=== PATIENT | female | born 1965 | race Caucasian/White ===

== ENCOUNTER 2017-06-06 07:45 | Inpatient (IN) | payer BC ==
--- NOTE | 2017-07-16 13:50 | HP ---
PREOPERATIVE HISTORY AND PHYSICAL: DATE OF ADMISSION: This patient is scheduled for AA admission by Dr. Jose, on 07/25/17. DATE OF PREOPERATIVE HISTORY AND PHYSICAL EXAMINATION: 07/16/17. ATTENDING SURGEON: Josef Jose MD * (dictated by Regina Lewis NP). CHIEF COMPLAINT: Gastrojejunal stricture. HISTORY OF PRESENT ILLNESS: The patient is a 52-year-old female status post laparoscopic Jovany-En-Y gastric [place] [address] Jose. 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 She describes reflux like symptoms that are not improved with proton pump inhibitors. She underwent EGD in May 2017 and dilation of a 6-mm gastrojejunal anastomosis. She also underwent an upper GI study, which showed a hiatal hernia. Surgery was scheduled in May 2017, but she had an abnormal EKG at preadmission testing and therefore was referred to Dr. Dee. She underwent cardiology workup and was cleared to proceed with surgery now. Please see the attached cardiology consultation note for details. Dr. Jose has recommended laparoscopic revision of the gastrojejunal anastomosis and has discussed the nature of the surgical procedure, the rationale for the procedure, the relevant risks and benefits and today, I discussed the typical hospitalization and postoperative care and recovery. The patient has had a chance to ask questions and stated that she understands the information and is satisfied with the answers given to her questions. She will sign surgical consent on the day of surgery. PAST MEDICAL HISTORY: Is significant for obesity, gastroesophageal reflux disease, nutritional anemia. PAST SURGICAL HISTORY: Laparoscopic Jovany-En-Y gastric bypass in 2011, laparoscopic cholecystectomy, abdominoplasty, tonsillectomy, appendectomy, breast reduction, and hernia repair. MEDICATIONS: Ativan 0.5 mg p.r.n. anxiety. ALLERGIES: CODEINE causes migraine headaches; she can tolerate hydrocodone. FAMILY HISTORY: No known anesthesia complications, bleeding tendencies, or clotting disorders. 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 She has never been a smoker. She denies the use of alcohol or other substances. REVIEW OF SYSTEMS: Constitutional: No fevers or chills, excessive fatigue or weight loss; yesterday she reported feeling very dehydrated while she was on a preoperative diet and she was also having muscle spasms and she went to the [facility] and was given IV fluid resuscitation; all of her labs at that visit were within normal limits and Dr. Jose has advised returning to a regular diet. Endocrine: No diabetes or thyroid disease. Hematologic: No easy bruising. She reports that she required blood transfusions when she had her abdominoplasty. Respiratory: No dyspnea on exertion. No chronic cough. Cardiovascular: No anginal chest pain or palpitations. Gastrointestinal: As described in history of present illness. Genitourinary: No hematuria or dysuria. Musculoskeletal: Chronic mild muscle spasms for many years. Neurologic: No headache, blurred vision; she does have tingling at times in her fingertips. No sensory problems. General: She reports vomiting with previous anesthesia. She denies history of deep vein thrombosis or pulmonary embolism. PHYSICAL EXAMINATION GENERAL SURVEY: The patient is a 52-year-old female, well developed, in no acute distress. VITAL SIGNS: Height 65 inches, weight 171 pounds, body mass index 28.5. Blood pressure 104/70, pulse 62 and regular, respiratory rate 16, temperature 96.8 tympanic. HEENT: Benign, anicteric sclerae. NECK: Supple. No cervical lymphadenopathy. No thyromegaly. LUNGS: Breath sounds bilaterally clear and equal. HEART: Regular rate and rhythm. No murmurs or rubs appreciated. BACK: No CVA tenderness. ABDOMEN: Multiple well healed surgical scars, active bowel sounds, soft and nondistended, nontender throughout. No obvious masses, organomegaly, or evidence of ventral hernia. PELVIC AND RECTAL: Exams deferred. EXTREMITIES: Warm without edema or skin ulceration. NEUROLOGIC: Alert and oriented x3. Steady gait. SKIN: Warm, dry, intact. IMPRESSION: Gastrojejunal stricture. PLAN: AA admission to Dr. Jose's service on Tuesday, July 25, 2017, for laparoscopic revision of gastrojejunal anastomosis. OLLIE LEWIS NP [id number]/[facility] #: [id number] [facility]
[2017-07-24] MEDS ORDERED: Buffered Lidocaine 0.9% SYRIN* 5 ML/SYR SYRINGE INTRADERM ONE (09:27)
[2017-07-25] MEDS ORDERED: Clindamycin 900 MG IVPREMIX(* 900 MG/50 ML SDV IV SCH
[2017-07-25] MEDS ORDERED: NS 0.9% IVPB SCH ×2
[2017-07-25] MEDS ORDERED: CEFAZOLIN IVPB SCH ×2
[2017-07-25] MEDS ORDERED: Scopolamine 1.5 mg* PATCH TRANSDERM ONE (06:00)
[2017-07-25] MEDS ORDERED: Famotidine IV* 10 MG/ML 2 ML (20 mg) IV ONE (06:00)
[2017-07-25] MEDS ORDERED: Dexamethasone IV* 4 MG/ML 1 ML (4 MG) IV SLOW PU ONE (06:00)
[2017-07-25] MEDS ORDERED: Dexamethasone IV* 4 MG/ML 1 ML (4 MG) ONE (11:55)
[2017-07-25] MEDS ORDERED: Scopolamine 1.5 mg* PATCH ONE (11:55)
[2017-07-25] MEDS ORDERED: Famotidine IV* 10 MG/ML 2 ML (20 mg) ONE ×2 (11:55→12:32)
[2017-07-25] MEDS ORDERED: Heparin VIAL(*) 5000 UNITS/ML VIAL (FIVE THOUSAND) ONE (11:55)
[2017-07-25] MEDS ORDERED: Buffered Lidocaine 0.9% SYRIN* 5 ML/SYR SYRINGE ONE (11:56)
[2017-07-25] MEDS ORDERED: ceFAZolin 2 GM PREMIX (*) 2 GM/50 ML BAG IVPB ONE (11:56)
[2017-07-25] MEDS ORDERED: Clindamycin 900 MG IVPREMIX(* 0 MG/0 ML SDV IV ONE (11:56)
[2017-07-25] MEDS ORDERED: ceFAZolin 1 GM ADVAN(*) 1 GM ADDV.VIAL IVPB ONE (12:32)
[2017-07-25] MEDS ORDERED: Bupivacaine 0.25% SDV* 30 ML ONE ×2 (12:48→14:18)
[2017-07-25] MEDS ORDERED: Methylene Blue 0.5 %* 50 MG/10 ML AMP IV ONE (12:48)
[2017-07-25] MEDS ORDERED: Propofol* 10 MG/ML 20 ML BTL IV PUSH ONE (13:05)
[2017-07-25] MEDS ORDERED: Lidocaine 2% PF * 5 ML VIAL ONE (13:05)
[2017-07-25] MEDS ORDERED: Rocuronium* 10 MG/ML VIAL ONE (13:06)
[2017-07-25] MEDS ORDERED: fentaNYL* 50 MCG/ML 2 ML VIAL (100 MCG VIAL) ONE ×2 (13:06→16:28)
[2017-07-25] MEDS ORDERED: Midazolam* 1 MG/ML 2 ML VIAL (2 MG) ONE (13:06)
[2017-07-25] MEDS ORDERED: Ketorolac INJ* 30 MG/ML 1 ML VIAL ONE (13:30)
[2017-07-25] MEDS: Ketorolac INJ* 30 MG/ML 1 ML VIAL IV PRN ×2 (13:30→19:37)
[2017-07-25] MEDS ORDERED: EPHEDrine (Pressors)* 50 MG/ML VIAL ONE (13:58)
[2017-07-25] MEDS ORDERED: PROCHLORPERAZINE INJ 5 MG/ML 2 ML VIAL IV PRN (14:01)
[2017-07-25] MEDS ORDERED: fentaNYL* 50 MCG/ML 2 ML VIAL (100 MCG VIAL) IV PRN (14:01)
[2017-07-25] MEDS ORDERED: Acetaminophen IV 1GM/100ML * 1,000 MG/100 ML VIAL IVPB ONE (14:01)
[2017-07-25] MEDS ORDERED: Ondansetron INJ* 2 MG/ML VIAL ONE (16:23)
[2017-07-25] MEDS ORDERED: Acetaminophen IV 1GM/100ML * 100 ML ONE (16:35)
[2017-07-25] MEDS ORDERED: Ondansetron INJ* 2 MG/ML VIAL IV PRN (17:16)
[2017-07-25] MEDS ORDERED: diPHENhydraMINE IV* 50 MG/ML 1 ml VIAL (BENADRYL) SLOW PUSH PRN (17:16)
[2017-07-25] MEDS ORDERED: Acetaminophen ADULT LIQ* 650 MG/20.3 ML UDC PO PRN (17:16)
[2017-07-25] MEDS ORDERED: HYDROmorphone INJ* 2 MG/ML CARPUJECT SYRINGE IV PRN (17:16)
--- NOTE | 2017-07-25 17:16 | SURGPN ---
Brief Operative Note - Surgery Procedures: Procedures Pre-OP Diagnoses: gastrojejunal stricture, hiatal hernia Post-op Diagnosis: same Procedure: Diagnostic Laparoscopy, revision of gastrojejunostomy, hiatal hernia repair Surgeon: Rebeca Asst: Nicole Anethesia: GONZALES Go EBL: 75cc IVF: 2600cc LR Specimen: none Drains: #7 Atif at GJ anastomosis
[2017-07-25] MEDS ORDERED: HYDROmorphone INJ* 1 MG/ML CARPUJECT SYRINGE ONE (17:43)
[2017-07-25] MEDS: HYDROmorphone INJ* 1 MG/ML CARPUJECT SYRINGE IV PRN ×5 (17:44→18:05)
[2017-07-25] MEDS ORDERED: Famotidine IV * 20 MG in NS 0.9% 100 ML* 100 ML IVPB SCH (18:00)
[2017-07-25] MEDS: Famotidine IV* 10 MG/ML 2 ML (20 mg) IV SCH (19:39)
[2017-07-25] MEDS: Heparin VIAL(*) 5000 UNITS/ML VIAL (FIVE THOUSAND) SUBCUT SCH (22:30)
[2017-07-26] MEDS: Ketorolac INJ* 30 MG/ML 1 ML VIAL IV PRN ×2 (05:04→11:03)
[2017-07-26] MEDS: Heparin VIAL(*) 5000 UNITS/ML VIAL (FIVE THOUSAND) SUBCUT SCH ×3 (05:06→22:02)
[2017-07-26] MEDS: Famotidine IV* 10 MG/ML 2 ML (20 mg) IV SCH ×2 (07:17→20:18)
[2017-07-26] MEDS ORDERED: Influenza VAC *QUAD* 2017-18* 0.5 ML SYRINGE IM ONE (09:00)
--- NOTE | 2017-07-26 09:31 | RAD ---
INDICATION: The patient is status repair of a post Jovany-en-Y gastric bypass surgery. COMPARISON: Comparison is made with a prior upper GI series from March 07, 2017. Technique: An upper GI series examination was performed with Gastrografin contrast. Approximately 1.5 minutes of intermittent fluoroscopic guidance were used during the exam. Findings: Initial rand butting machine operator film demonstrates a surgical drain in the left upper quadrant. There are multiple surgical clips in the right and left upper quadrants and surgical shlomo which project over the mid abdomen. The patient is status post Jovany-en-Y gastric bypass surgery. The esophageal peristalsis appeared normal. There is normal filling of the efferent limb. There is no evidence for intraperitoneal leakage of contrast. The previously noted hiatal hernia is no longer visualized. IMPRESSION: STATUS POST JOVANY-EN-Y GASTRIC BYPASS SURGERY, NO EVIDENCE FOR ANASTOMOTIC LEAK. CPT II Codes: 6045F
--- NOTE | 2017-07-26 13:23 | OP ---
CC: Dr. Neil Nesbitt; Dr. Norberto Barcenas * DATE OF OPERATION: 07/25/17 - ROOM #334 DATE OF : 65 SURGEON: Josef Jose MD. HEAVY THREADER: Dinh Rivera MD. ANESTHESIOLOGIST: Dr. Jonathon Go. ANESTHESIA: General anesthesia. PRE-OP DIAGNOSIS: Chronic gastrojejunal stricture. POST-OP DIAGNOSIS: Chronic gastrojejunal stricture and hiatal hernia. OPERATIVE PROCEDURE: Diagnostic laparoscopy, revision of gastrojejunostomy, and hiatal hernia repair. ESTIMATED BLOOD LOSS: 75 cc. IV FLUIDS: 2600 cc of LR. SPECIMEN: Portion of gastrojejunostomy. DRAINS: A #7 TERESSA drain left at the gastrojejunostomy anastomosis. INDICATIONS: Ms. Larsen is a 52-year-old female who is 5 year status post Jovany- en-Y gastric bypass who has been suffering with recurrent gastrojejunal strictures requiring endoscopy and dilation. I discussed with the patient the revision of the gastrojejunal anastomosis going over the risks, benefits, and alternatives. Again, we spoke today, she understood going forward our plan and signed consent. DESCRIPTION OF PROCEDURE: She was marked in the preoperative area and was taken to the operating room and placed on the operating table in supine position. Preoperative antibiotics were given. Sequential devices were placed on bilateral lower extremities. General anesthesia was induced. Roche catheter inserted. The patient's abdomen was prepped and draped in a standard surgical fashion. A time-out was performed. A subcostal incision was made on the right side at 2 fingerbreadths below the costal margin, this was deepened down in the anterior fascia, which was elevated and a Veress needle was attempted to be placed in the abdominal cavity , but this proved to be difficult and we abandoned this and instead made a midline incision just above the umbilicus deep venous down towards the anterior fascia, which was incised, and a cut down technique was utilized to gain access into the abdomen. A small opening was made enough to compass a Veress needle, which was inserted. The abdomen was allowed to insufflate and a 12 mm trocar was placed in the left upper quadrant. At this point, we could put the camera in, the Veress needle was removed and a 12-mm trocar was inserted at this site at the upper midline and then another 12-mm through the initial incision at the right upper quadrant. Review of the abdomen showed adhesions to the anterior abdominal wall as well as through a mesh in the midline. There was no free fluid. Liver appeared intact. Additional trocars were placed at the following positions, at 5 mm in the left lateral site and a Maia retractor was then inserted through a subxiphoid incision and the liver was retracted anteriorly into the right. This allowed us to see adhesions to the stomach pouch. These were taken down with both sharp and blunt dissection until we could see the lesser curvature of the pouch. Attention was then turned towards the gastrojejunal anastomosis. Both sharp and blunt dissection was carried out to free the Jovany limb from the remnant stomach. Once we were around this site, we isolated a portion of the Jovany limb proximally and placed a 60 mm man HORACIO stapler across this. This was allowed to retract back into the mid abdomen and allowed us to just dissect around the gastro-jejunum. We extended this sharp dissection out towards the pouch of the stomach, which was significantly adhered to the gastric remnant. We were able to free this off the gastric remnant. I did not appreciate any fistula; however , this was a chronically inflamed and attached area that did require entering into the gastric remnant to feel comfortable without removal of the gastrojejunal anastomosis from this site. The serosal area of the remnant was reapproximated with interrupted 2-0 silk suture. This was not a through and through defect. Additional sharp dissection was carried out to free this pouch and it extended inferiorly and at this point, a window was made around the gastric pouch and a 60- mm purple HORACIO stapling device was fired across this. The anastomosis was fully resected and placed off to the side. Next, attention was turned towards the , this was taken with sharp dissection. We extended this to the right crura and released the attachments along the crura. We could see the left pura was displaced laterally exposing a hernia at this site. With blunt dissection and retraction, we were able to remove the posterior fat pad from within this hiatal hernia and slowly got around the area at the base of the crura and with gentle retraction, we were able to pull what appeared to be the entire stomach into the abdomen. A small diverticula was noted just distal to the angle of His. This could have been a dilation after the surgery or some missed portion of the stomach from the initial surgery, but it was a small piece of fundal tissue. This was taken with a 60-mm purple HORACIO stapling device. We placed this as well as the initial gastrojejunal anastomosis into an endoscopic retrieval bag and removed it, passed off the anastomosis as a specimen. We evaluated the crura and did decide we would perform a cruroplasty posteriorly after blunt dissection was utilized to free up this site. We did not visualize in any of these issues. There was no concern about distance. We had the stomach completely into the abdomen and there was no plan for a wrap. Next, the Jovany limb was then again grasped and brought up towards our stomach pouch. Stay sutures were placed with 3-0 silk to attach the Jovany limb to the stomach pouch laterally. A gastrotomy was made over a Emily tube and an enterotomy was also made and we mated the two with a 30 mm man HORACIO stapling device, firing approximately just over 2 cm of the staple line. The anastomosis was widely patent and the common defect was reapproximated with interrupted 3-0 silk suture in a [id number] fashion. Next the anastomosis was tested, clamping the Jovany limb proximally and placing the Emily tube through the anastomosis, we injected methylene blue. There was no evidence of blue dye after injection within this gastro-jejunum. The dye was suctioned off and the tube removed completely. Attention was then turned towards the crura. We performed a posterior cruroplasty with a single 0 Ti-Cron suture, taking care to pickling drum operator left and right crura and bringing these two together. This is not too tight. We did not pass the bougie for this purpose. A #7 TERESSA drain was inserted into the abdomen and placed behind the gastro- jejunum anastomosis and extending up towards the hiatus. It was brought out through the left lateral most port site and sutured to the skin with 3-0 Prolene sutures. The abdomen was allowed to collapse. Trocars were removed under direct vision and Maia retractor was removed under direct vision and all additional incisions were reapproximated with skin shlomo. Sterile dressing was applied. The patient tolerated the procedure well, was woken up in the OR and transferred to the PACU in stable condition. [id number]/[facility] #: [id number] [facility] HEALTHRoge
[2017-07-26] MEDS: HYDROcodone/ACET. 7.5/325 LIQ* 15 ML UDC PO PRN ×2 (14:01→23:30)
[2017-07-26] MEDS: D5W 1/2 NS KCl 20 Meq 1000 ML* 1,000 ML IV SCH ×2 (15:32→23:35)
--- NOTE | 2017-07-26 15:33 | PN ---
Progress Note - Progress Note Date of Service: 07/26/17 SOAP: Subjective: Pt seen and examined earlier today. No nausea. Positive abdo pain. Ambulating Objective: af vss lungs clear abdo: soft/ distended, tender dressing intact TERESSA serosang no calf tenderness UGI: reviewed Assessment: POd1 revision gastric bypass Plan: samantha ch, pain control
[2017-07-27] MEDS: Heparin VIAL(*) 5000 UNITS/ML VIAL (FIVE THOUSAND) SUBCUT SCH ×2 (05:35→14:08)
[2017-07-27] MEDS: D5W 1/2 NS KCl 20 Meq 1000 ML* 1,000 ML IV SCH (07:27)
[2017-07-27] MEDS: Ketorolac INJ* 30 MG/ML 1 ML VIAL IV PRN (07:42)
[2017-07-27] MEDS: Famotidine IV* 10 MG/ML 2 ML (20 mg) IV SCH (07:42)
--- NOTE | 2017-07-27 11:00 | PN ---
Progress Note - Progress Note Date of Service: 07/27/17 SOAP: Subjective: Patient seen and examined at bedside. Reports doing better, less abdominal pain. Tolerating stage I bariatric diet. Ambulatory, denies nausea, vomiting, fever or chills. Ready to go home. Objective: Awake and alert, comfortable in bed, in NAD VSS, Tmax 99.1 Lungs CTA bilat. Heart RRR, no murmurs Abdomen soft, NT, ND. Incisions C/D/I. TERESSA-vac with 20cc serous output. Ext. without edema Assessment: POD#2, s/p diagnostic laparoscopy with revision of gastrojejunostomy and hiatal hernia repair, doing well. Plan: D/C IVF D/C to home later today with TERESSA drain PPI at home and F/U [facility].
[2017-07-27 12:05] VITALS: BP 111/69
[2017-07-27] MEDS: HYDROcodone/ACET. 7.5/325 LIQ* 15 ML UDC PO PRN (14:08)
--- NOTE | 2017-07-28 04:01 | DS ---
DISCHARGE SUMMARY: DATE OF ADMISSION: 07/25/17 DATE OF DISCHARGE: 07/27/17 PATIENT OF: Josef Jose MD ADMISSION DIAGNOSES: Dysphagia and gastrojejunal stricture. DISCHARGE DIAGNOSES: Dysphagia and gastrojejunal stricture. ADMITTING PHYSICIAN: Josef Jose MD * (DICTATED BY LINNETTE ROGERS) CONSULTATIONS: None. PROCEDURE: Diagnostic laparoscopy with revision of gastrojejunal anastomosis and repair of hiatal hernia. HISTORY OF PRESENT ILLNESS: Ms. Larsen is a 52-year-old female, who is status post laparoscopic Rounx-en-Y gastric bypass back [place] [address] Jose. She continued to suffer from gastrojejunal strictures that required diet limitations. She describes associated reflux-like symptoms that have not been improving using PPIs. She underwent EGD back in May of this year with dilatation of a 6 mm gastrojejunal anastomosis. She also underwent an upper GI study that showed a hiatal hernia. Given her ongoing symptoms and the findings of recurrent gastrojejunal stricture, the patient was scheduled for surgery on a later date to revise her gastrojejunal anastomosis. HOSPITAL COURSE: The patient was admitted on the Same-Day in anticipation to surgery. She underwent a diagnostic laparoscopy with a revision of gastrojejunostomy and repair of hiatal hernia on 07/25/[address] Jose. Her surgery went quite smoothly with no immediate complications. After surgery, patient went to recovery room in a stable condition and then to the surgical floor for observation. She did relatively well and only described upper abdominal pain that was relieved using pain medicine as needed. She was n.p.o. on the first night and had an upper GI on the following morning that revealed no evidence of a leak. She was ambulatory out of bed and in a stable condition. She remained afebrile and she started on stage I bariatric clear liquids on the first day postoperatively. She continued to improve that day, and her Roche catheter was eventually discontinued on that morning. On the second day postoperatively, patient continued to improve. She was ambulatory out of bed. She tolerated bariatric clear liquids very well and had no complaints of nausea or vomiting. Her TERESSA drain was producing serous output with no evidence of bleeding or leakage. She will be discharged home later today on stage I bariatric diet, and will be followed in the office on Sunday for drain removal. DISCHARGE MEDICATIONS: Include: 1. Prilosec 20 mg capsules once daily. 2. Lortab Elixir 7.5/325 one tablespoon q.6 hours as needed for pain. PROBLEM LIST: Gastrojejunal stricture, status post laparoscopic Jovany-en-Y gastric bypass in 2011. The patient is doing well, and she is status post laparoscopic revision of gastrojejunal anastomosis and repair of hiatal hernia on 07/25/17. LINNETTE ROGERS [id number]/[facility] #: [id number] MTDD
[2017-07-28] MEDS ORDERED: Scopolamine PATCH Remove* 1 NOTE MISC PATCH OFF ONE (06:00)
== END 2017-07-27 15:45 | disposition home or self-care (01) | DRG 220 ==
LOC: AA 07-25 11:10 → SSU 07-25 18:31
PROVIDERS: ADMIT Surgery; ATTEND Surgery
PROC: 0D7 Gastrointestinal System, Dilation (ICD-10-PCS; 2017-07-25)
PROC: 0D764ZZ Dilation of Stomach, Percutaneous Endoscopic Approach (ICD-10-PCS; 2017-07-25)
PROC: 0BQT4ZZ Repair Diaphragm, Percutaneous Endoscopic Approach (ICD-10-PCS; principal; 2017-07-25 13:00)
DX: K94.23 Gastrostomy malfunction (principal); K56.699 Other intestinal obstruction unspecified as to partial versus complete obstruction; K21.9 Gastro-esophageal reflux disease without esophagitis; K44.9 Diaphragmatic hernia without obstruction or gangrene; E66.9 Obesity, unspecified; F41.9 Anxiety disorder, unspecified; R13.10 Dysphagia, unspecified; Y83.2 Surgical operation with anastomosis, bypass or graft as the cause of abnormal reaction of the patient, or of later complication, without mention of misadventure at the time of the procedure; Y82.9 Unspecified medical devices associated with adverse incidents; Y92.009 Unspecified place in unspecified non-institutional (private) residence as the place of occurrence of the external cause; Z68.28 Body mass index [BMI] 28.0-28.9, adult; Z90.49 Acquired absence of other specified parts of digestive tract; Z88.6 Allergy status to analgesic agent; Z23 Encounter for immunization
CPT/HCPCS: 74246; 88305; 90686; A9270-GY; J0690; J1100; J1170; J1644; J1885; J2250; J2405; J2704; J3010

== ENCOUNTER 2017-09-11 13:23 | Observation (INO) | payer BC ==
[2017-09-11] MEDS ORDERED: HYDROmorphone INJ* 2 MG/ML CARPUJECT SYRINGE IV PRN (15:13)
[2017-09-11] MEDS ORDERED: Ketorolac INJ* 30 MG/ML 1 ML VIAL IV PRN (15:13)
[2017-09-11] MEDS ORDERED: Ondansetron INJ* 2 MG/ML VIAL IV PRN (15:13)
--- NOTE | 2017-09-11 18:26 | HP ---
AMENDED REPORT NOW INCLUDES COSIGNER DESIGNATION - ESIGNED BEFORE ADJUSTMENT CC: LU Kowalski * ADMISSION HISTORY AND PHYSICAL: DATE OF ADMISSION: 09/11/17 PATIENT OF: Dr. Josef Jose.* (DICTATED BY LINNETTE ROGERS) CHIEF COMPLAINT: Abdominal pain. HISTORY OF PRESENT ILLNESS: Ms. Larsen is a 52-year-old female who is well known to us from prior bariatric surgery. The patient is status post laparoscopic Jovany-en-Y gastric bypass back [place] [address] Jose. She was recently admitted to [facility] back in mid July where she underwent diagnostic laparoscopy with revision of gastrojejunostomy and hiatal hernia repair also by Dr. Jose approximately a month and a half ago. She reports that she has been in her usual state of health until earlier this morning. She was awaken approximately at 4 o'clock in the morning with abrupt onset of acute epigastric abdominal pain that she describes as being severe, sharp with radiation to the back. Pain was associated with nausea, but she denies any vomiting, fever, or chills. She described similar episode that very much resembles her gallbladder pain; however, she had her gallbladder removed approximately 16 years ago. She had similar episode most recently about 5 months ago that usually resolve on its own within few minutes. She describes the pain as being sharp and localized to the epigastric area with radiation to her back that did not subside and eventually she ended up going to [place] [facility] for further evaluation. She had laboratory workup done there that revealed evidence of an elevated lipase with value of 500 as well as elevated alkaline phosphatase. She had a CT scan of the abdomen and pelvis that failed to reveal any significant abnormality. Given her ongoing symptoms, staff from the emergency room in [place] contacted Dr. Jose who accepted the patient to be transferred to [facility] Room for further evaluation and possible surgical intervention. The patient herself described that her pain is very much gone since she was transferred from [place] to [place]. She still has some residual nausea, but denies any vomiting and she actually feels hungry this afternoon. She was seen and examined in the emergency room and we also had a chance to look at the report of the CT scan from [place] and her laboratory workup. At the time of admission, she appears to be more comfortable and denies any significant abdominal pain at this time. PAST MEDICAL HISTORY: Significant for morbid obesity for which she had laparoscopic Jovany-en-Y gastric bypass back in 2011 that was followed by revision of gastrojejunostomy and hiatal hernia repair in July of 2017. She also has history of gastroesophageal reflux disease and nutritional anemia. PAST SURGICAL HISTORY: As mentioned above, significant for lap Jovany-en-Y gastric bypass in 2011 followed by revision in 2017 as well as laparoscopic cholecystectomy, abdominoplasty, tonsillectomy, appendectomy, breast reduction, and hernia repair. MEDICATIONS: Her medications at home include: 1. Omeprazole 20 mg p.o. daily. 2. Zoloft 25 mg p.o. daily. ALLERGIES: She is allergic to CODEINE as well as BEES and WASP STINGS. FAMILY HISTORY: Noncontributory. SOCIAL HISTORY: The patient is a nonsmoker. 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 She denies any excessive alcohol use; however, she had only 2 drinks the night before her admission. REVIEW OF SYSTEMS: See HPI; otherwise, negative. She denies any headache, dizziness, blurred vision, or double vision. No sore throat, cough, palpitation , chest pain, or shortness of breath. She denies any back pain, flank pain, hematuria, dysuria, or urinary frequency. She admits to epigastric abdominal pain with associated nausea but denies any vomiting, changes in the colors of stool or urine, jaundice; however, she also described changes in the bowel habits for the last couple of days in the form of diarrhea with foul-smelling stools. She denies any recent antibiotic intake or travel. No fever, chills, weight loss, or night sweats. PHYSICAL EXAMINATION VITAL SIGNS: Her vitals revealed temperature of 99.4, pulse of 67, blood pressure of 133/74, and respirations of 18. HEENT: Head is normocephalic, atraumatic. Sclerae anicteric. PERRLA. EOMs intact. Oropharynx is pink and moist with no exudate. NECK: Supple. Trachea midline. No cervical adenopathy, thyromegaly, or JVD. LUNGS: Clear to auscultation bilaterally. HEART: Regular rate and rhythm. Normal S1 and S2 without rubs, murmurs, or gallops. BACK: Normal curvature. No CVA tenderness. BREAST EXAM: Deferred at this time. ABDOMEN: Soft, nontender, and nondistended. Special attention was given to upper abdominal exam with no significant tenderness was noted. There is no guarding, rigidity, or rebound tenderness. No hernias, masses, or hepatosplenomegaly. Surgical scars are well healed and no evidence of ventral hernia. EXTREMITIES: Without cyanosis, clubbing, or edema. RECTAL: Deferred at this time. NEUROLOGIC: Grossly intact. LABORATORY DATA: As mentioned, the patient had laboratory workup during her visit to [place] [facility] that revealed normal white count of 10,000, hemoglobin of 12, hematocrit of 36, and platelets of 286. Her comprehensive metabolic panel was essentially within normal limits except for slight hypokalemia with potassium of 3.3 and elevated lipase of 543 and alk phos of 132. Her troponin was negative. ACCESSORY DIAGNOSTIC DATA: CT scan of the abdomen and pelvis was done at [place] ED as well that revealed evidence of fatty liver without any hepatic mass or biliary dilatation. Otherwise, it was a negative CT scan of the abdomen and pelvis. IMPRESSION: A 52-year-old female with intermittent epigastric abdominal pain with associated nausea with elevated lipase, who is status post laparoscopic Jovany-en-Y gastric bypass back in 2011 followed by revision in July of 2017. PLAN: We went on and discussed with the patient the findings of her physical exam and laboratory workup. She appears to be stable at this time; however, we would like to keep her for observation overnight and reassess her exam and laboratory workup tomorrow morning. We will keep her also n.p.o. for now and reassess her exam tomorrow. The patient was also seen and examined by Dr. Rivera, who agreed to management plans and he will contact Dr. Jose to discuss further evaluation of the patient. Again, she shows no signs of acute abdomen and she will be admitted under surgical services for observation and we will follow her up accordingly. LINNETTE ROGERS [id number]/[facility] #: [id number] MTDRoge
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
[2017-09-12 07:01] LABS: ABS Basophils 0.1 10^3/ul (0-0.2); ABS Eosinophils 0.2 10^3/ul (0-0.6); ABS Lymphocytes 1.8 10^3/ul (1.0-4.8); ABS Monocytes 0.5 10^3/ul (0-0.8); ABS Neutrophils 3.1 10^3/ul (1.5-7.7); ABS Nucleated RBC 0 10^3/ul; Hematocrit 33 % (35-47); Hemoglobin 11.1 g/dl (12.0-16.0); Lymphocyte % 32.3 % (25-47); Mean Corpuscular HGB Conc 34 g/dl (31-36); Mean Corpuscular Hemoglobin 30 pg (27-31); Mean Corpuscular Volume 87 fL (80-97); Mean Platelet Volume 9 um3 (7.4-10.4); Nucleated Red Blood Cells % 0; Platelet Count 225 10^3/ul (150-450); Red Blood Count 3.77 10^6/ul (4.0-5.4); Red Cell Distribution Width 14 % (10.5-15); White Blood Count 5.6 10^3/ul (3.5-10.8)
[2017-09-12] MEDS ORDERED: Famotidine IV* 10 MG/ML 2 ML (20 mg) IV SCH (09:00)
[2017-09-12] MEDS ORDERED: Famotidine IV * 20 MG in NS 0.9% 100 ML* 100 ML IVPB SCH (09:00)
--- NOTE | 2017-09-12 09:10 | PN ---
Progress Note - Progress Note Date of Service: 09/12/17 SOAP: Subjective: Pt seen and examined. Felling better today. Abdo pain resolved yesterday after about 6 hrs. Nausea resolved overnight. Pt is hungry. Objective: Af VSS lungs clear abdo: soft/ ND/ NT hypoactive BS no calf tenderness labs reviewed. Lipase normal; anemia Assessment: HD 1 abdo pain; DDX internal hernia resolved, GERD or marginal ulcer. Plan: advance diet cont PPI d/c planning with close follow up.
[2017-09-12] MEDS ORDERED: Sertraline* 25 MG TAB PO SCH (10:00)
[2017-09-12] MEDS ORDERED: Omeprazole CAP* 20 MG PO SCH (10:00)
[2017-09-12 16:35] VITALS: BP 125/71
== END 2017-09-12 18:15 | disposition home or self-care (01) ==
LOC: ED 13:23 → SSU 15:13
PROVIDERS: ADMIT Surgery; ATTEND Surgery
DX: R10.13 Epigastric pain (principal); R11.0 Nausea; Z98.84 Bariatric surgery status; K21.9 Gastro-esophageal reflux disease without esophagitis; Z79.899 Other long term (current) drug therapy
CPT/HCPCS: 36415; 80053; 83690; 85025; 86140; 96361; 96374; 99283; A9270-GY; G0378; J2405

== ENCOUNTER 2017-12-13 11:38 | Emergency (ER) | payer BC, OTHER ==
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
[2017-12-13] MEDS ORDERED: diPHENhydraMINE LIQ* 12.5 MG/5 ML UDC ONE (13:56)
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
[2017-12-13 14:30] VITALS: BP 128/81
[2017-12-13] MEDS ORDERED: Acetaminophen TAB* 325 MG PO ONE (14:32)
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
== END 2017-12-13 14:54 | disposition home or self-care (01) ==
LOC: UCCORT 11:38
DX: S16.1XXA Strain of muscle, fascia and tendon at neck level, initial encounter (principal); R07.81 Pleurodynia; M89.8X1 Other specified disorders of bone, shoulder; M54.6 Pain in thoracic spine; S63.611A Unspecified sprain of left index finger, initial encounter; V49.49XA Driver injured in collision with other motor vehicles in traffic accident, initial encounter; Y92.411 Interstate highway as the place of occurrence of the external cause
CPT/HCPCS: 71046; 72125; 99213; A9270-GY; G0463